=== PATIENT | female | born 1935 | race Caucasian/White ===

== ENCOUNTER → 2016-12-07 | Outpatient (CLI) | payer MEDICARE, OTHER ==
--- NOTE | 2016-12-08 06:09 | WWPN ---
DATE OF SERVICE: 12/07/2016 CHIEF COMPLAINT: A bulge from the vaginal opening x6 months. HPI: This is a 80-year-old G3, P3 with an LMP of 1980 who has noticed a slight bulge from the vaginal opening at various times. She states that it is not constantly out, but tends to come out in certain situations. She states it can protrude from the vaginal opening about 1 inch. She does have a history of a cystocele and uterine prolapse, which have been followed conservatively. She denies any significant urinary leakage, but does feel like she sometimes has to get to the bathroom right away. PAST MEDICAL HISTORY: Anxiety. REVIEW OF SYSTEMS: She denies respiratory, cardiac or GI problems. PHYSICAL EXAM: Blood pressure 116/72. Height 5 feet 1 inch. Weight 129 pounds. Temperature 97.6. Pulse 72. This is a well-developed, well-nourished white female who is alert and oriented x3 in no acute distress. ABDOMEN: Soft, nontender without palpable masses. PELVIC EXAM: External genitalia reveals moderate atrophy without lesions. At rest, a small mucosal prolapse is noted in the anterior part of the introitus protruding approximately 1 to 2 cm from the introitus. With speculum examination , the anterior part of the cervix seems to be part of the prolapsing tissue alone with a cystocele. The uterus and bladder seem to come to the introitus at rest and with Valsalva can protrude from the introitus approximately 1 to 2 cm. The mucosal tissue appears mildly atrophic, but there is no ulceration or excoriation of the mucosal tissue. There is no significant thickening of the mucosal tissue as well. Bimanual exam confirms uterine and bladder prolapse as described above. The uterus is small, nongravid size and nontender. There are no palpable adnexal masses or tenderness. Rectovaginal exam confirms a grade 2 rectocele, which was also noted on the vaginal exam. There are no rectal masses. IMPRESSION: A 80-year-old menopausal female with slightly worsening of her vaginal prolapse and this includes a grade 3 to 4 uterine prolapse and grade 3 to 4 cystocele. There is also a grade 2 rectocele. PLAN: 1. We have had a long discussion regarding the findings as well as various options including surgical correction, conservative management and pessary use. The patient would like to proceed with conservative management. 2. Negative Valsalva exercises were again discussed with the patient and I have recommended that she do this 5 times in a row when she does notice an increased bulge and prior to voiding. She feels strongly that she does not want surgery at this time. 3. We will also have a trial of using Poise Impressa bladder supports. She will use a trial fitting kit and use this as directed if she finds it helpful. 4. She will return in approximately 3 months for her annual exam and p.r.n. Total time spent with the patient 35 minutes. RACHAEL
== END | disposition home or self-care (01) ==
LOC: WWCWWP 10:39
PROVIDERS: ATTEND Obstetrics & Gynecology
DX: Z53.9 Procedure and treatment not carried out, unspecified reason (principal)

== ENCOUNTER → 2017-02-13 | Outpatient (CLI) | payer MEDICARE, OTHER ==
[2017-02-13 12:23] LABS: EKG EKG PERFORMED
[2017-02-13 13:09] LABS: Basophils # (A) 0.1 k/uL (0-0.2); Basophils % (A) 1 %; CH 31.6; CHCM 32.9; Eosinophils # (A) 0.2 k/uL (0-0.7); Eosinophils % (A) 3 %; HCT 41.9 % (34.0-46.0); HDW 2.27; HGB 13.3 gm/dL (11.4-16.0); Luc # (Auto) 0.13; Luc % (Auto) 2; Lymphocytes # (A) 2.1 k/uL (1.0-4.8); Lymphocytes % (A) 30 %; MCH 30.6 pg (25.0-35.0); MCHC 31.7 g/dL (31.0-37.0); MCV 96.6 fL (80.0-100.0); Mean Platelet Volume 7.5; Monocytes # (A) 0.4 k/uL (0-1.0); Monocytes % (A) 6 %; Neutrophils % (A) 58 %; RBC 4.33 m/uL (3.80-5.40); RDW 14.4 % (11.5-15.5); WBC 6.9 k/uL (3.8-10.6); WBC (Perox) 7.19
[2017-02-13 13:34] LABS: Anion Gap 7 mmol/L; Blood Urea Nitrogen 14 mg/dL (7-17); Carbon Dioxide 29 mmol/L (22-30); Chloride 103 mmol/L (98-107); Non-African American GFR(MDRD) >60 (>60 ml/min/1.73 sqM); Potassium 4.5 mmol/L (3.5-5.1); Sodium 139 mmol/L (137-145)
== END | disposition home or self-care (01) ==
LOC: LABPAT 12:11
PROVIDERS: ATTEND Obstetrics & Gynecology
DX: Z01.810 Encounter for preprocedural cardiovascular examination (principal); N81.4 Uterovaginal prolapse, unspecified
CPT/HCPCS: 80051; 82565; 84520; 85025; 87086; 93005

== ENCOUNTER 2017-02-21 05:48 | Day surgery (SDC) | payer MEDICARE, OTHER ==
[2017-02-13 18:20] VITALS: BMI 24.1
[~2017-02-21 05:48] MED LIST: DEXAMETHASONE SOD PHOSPHATE 10 MG/ML 1 ML VIAL IV ONE; HYDROmorphone 0.5 MG/0.5 ML SYRINGE IVP PRN; ONDANSETRON 4 MG/2 ML VIAL IVP ONE; ceFAZolin 2 GM in SODIUM CHLORIDE 0.9% 100 ML IVPB ONE
[2017-02-21] MEDS: LACTATED RINGERS 1,000 ML IV SCH ×3 (06:30→21:12)
[2017-02-21] MEDS ORDERED: LIDOCAINE 1% 20 ML VIAL (10MG/ML) FOR IV START INTRADERMA ONE (06:30)
[2017-02-21] MEDS ORDERED: MIDAZOLAM 2 MG/2 ML VIAL ONE (07:23)
[2017-02-21] MEDS ORDERED: fentaNYL (PF) 50 MCG/ML 2 ML AMP ONE (07:23)
[2017-02-21] MEDS ORDERED: PROPOFOL 10 MG/ML 20 ML VIAL IV ONE (07:23)
[2017-02-21] MEDS ORDERED: diphenhydrAMINE 50 MG/ML 1 ML VIAL ONE (07:23)
[2017-02-21] MEDS ORDERED: VASOPRESSIN 20 UNIT/ML 1 ML VIAL SQ ONE ×2 (07:49)
[2017-02-21] MEDS ORDERED: BACITRACIN 500 UNIT/GM OINT 28.4 GM TUBE TOPICAL ONE (08:32)
[2017-02-21] MEDS ORDERED: METOCLOPRAMIDE 5 MG/ML 2 ML VIAL IVP PRN (09:10)
[2017-02-21] MEDS ORDERED: SIMETHICONE 80 MG CHEWABLE PO PRN (09:10)
[2017-02-21] MEDS ORDERED: IBUPROFEN 600 MG TAB PO PRN (09:10)
[2017-02-21] MEDS ORDERED: Acetaminophen-Codeine 300-30mg TAB PO PRN (09:10)
[2017-02-21] MEDS ORDERED: diphenhydrAMINE 50 MG/ML 1 ML VIAL IVP PRN (09:10)
--- NOTE | 2017-02-21 09:10 | P.OP ---
Date of Procedure: 02/21/17 Preoperative Diagnosis: Uterine prolapse, symptomatic cystocele and rectocele Postoperative Diagnosis: Atrophic-appearing ovaries bilaterally Procedure(s) Performed: Vaginal hysterectomy, anterior and posterior colporrhaphy's Anesthesia: ROSALESA Surgeon: Ana Hurtado Bander Operator #1: Gena Corona Estimated Blood Loss (ml): 50 IV fluids (ml): 700 Urine output (ml): 300 Pathology: other (Cervix and uterus) Condition: stable Disposition: PACU Description of Procedure: Patient is brought to the operating room where spinal with Duramorph is given per the anesthesia staff. She's placed in the dorsal lithotomy position. The cervix vagina perineal bodies and lower abdomen are all prepped and draped in the usual sterile fashion. Antibiotics are given. The appropriate timeout was performed to assure proper patient and procedural identification. The weighted speculum was placed into the vagina. The bladder is drained for approximate 300 mL of clear yellow urine. The anterior lip of the cervix is grasped with a double-tooth tenaculum. The cervix was injected circumferentially with a dilute Pitressin solution. A [facility] ir[facility] blade scalpel is used to incise the mucosa circumferentially with a V like positioning in the back. A sponge was used to sweep the mucosa from the underlying fascial plane. The peritoneum is entered at 6:00 with Metzenbaum scissors, the large billed speculum was then placed into the peritoneal cavity. The right uterosacral cardinal ligament is clamped with a Gino clamp. Duarte scissors are used to cut the pedicle. 0 Vicryl is used in a Edilberto stitch to secure the pedicle, this is held with a hemostat laterally. The same procedure is carried out on the contralateral side. At all times a sponge is used to keep the bladder swept well from the operative field to avoid bladder and/or ureteral injury. Uterine vasculature is next identified and incised, it is clamped and tied and the suture cut. 2 additional pedicles are taken superior to this. The uterus is then "walked out posteriorly. The peritoneum is entered at 12:00. Gino clamps are used across the final pedicles and the specimen is removed. The pedicles are then suture tied with 0 Vicryl suture, flashed and retied for excellent hemostasis. A sponge stick is then used and bilateral ovaries are inspected and noted to be normal, they are left in situ per the patient's wishes. The speculum is then changed to the shallow billed speculum. The previously placed 2-0 Vicryl at 6:00 is brought around in a pursestring fashion to close the peritoneum. The previously held uterosacral cardinal ligament complex these are then brought across to incorporate the opposite complex and vaginal mucosa to close the vaginal cough. An additional [id number] is placed in the mucosa's inferior to this. Allis clamps are then used to grasp the anterior mucosa and a fanlike fashion. The anterior mucosa is once again injected with the same dilute Pitressin solution. Metzenbaum scissors are used to undermine the mucosa and develop the plane. The mucosa is cut in the midline to approximately 1/2 cm inferior to the urethra. Cheek catheter is then placed in the bladder is once again drained. The mucosa is then swept from the underlying fascial plane bilaterally. 2-0 Vicryl suture is used in an interrupted fashion to bring the fascial edges together thereby completely reducing the cystocele. Metzenbaum scissors are used to trim the redundant mucosa. A fresh 2-0 suture is used in a running fashion to close the vaginal mucosa. At this time the rectocele repair is started. Scalpel is used to remove a triangular portion of tissue at the perineal body. Posterior mucosa is injected with the same dilute Pitressin solution. Metzenbaum scissors are used in the midline to underlying the mucosa and it is opened to the apex of the defect. The mucosa is held in a fanlike fashion bilaterally with Allis clamps. A sponge is used to once again sweep the mucosa from the underlying fascial plane. 2-0 Vicryl sutures are used in an interrupted fashion to bring the fascia together in the midline thereby completely reducing the rectocele. Metzenbaum scissors are used to trim the mucosa. A fresh 2-0 suture is used in a running fashion to close the mucosa and the repair is finished in an episiotomy-like repair. Cheek is noted to be draining clear urine. Rectal exam reveals no suture material in the rectal vault. All sponge needle and enhancement counts are correct at the end of the procedure. Patient is brought back to recovery room in stable condition with stable vital signs including blood pressure 120/63, pulse 72, 100% O2 saturation. Complications: None.
[2017-02-21] MEDS: SENNOSIDES-DOCUSATE SODIUM 1 EACH TAB PO SCH (21:12)
--- NOTE | 2017-02-22 07:08 | P.PN ---
Progress Note - Text Postoperative day 1 status post , vaginal hysterectomy ,under GA anesthesia, and intrathecal morphine given for postoperative analgesia, patient doing well, there is no anesthesia related complications, further management as per her primary team
--- NOTE | 2017-02-22 08:50 | P.DS ---
Providers Date of admission: t Expected date of discharge: 02/22/17 Attending physician: Ana Hurtado Primary care physician: Ivan Orellana [facility] Course: This is a 81-year-old female 3 para 3 who presented with pelvic organ prolapse, uterine prolapse, cystocele and rectocele. Consultation was performed thoroughly, and patient elected to have surgical repair. Please see my dictated history and physical for details. Patient underwent vaginal hysterectomy, anterior and posterior colporrhaphy's under my care yesterday. She did very well intraoperatively. The ovaries appeared normal to inspection and therefore were left in situ per her wishes. Please see my dictated operative note for details. Vaginal packing and Cheek catheter were placed. Patient did well through the night. This morning there is only scant vaginal drainage. She has voided, and postvoid residual was measured at 37 mL's. Vital signs are stable and she is afebrile. Abdomen is soft, nontender, active bowel sounds. There is no CVA tenderness. Chest is clear in all singh. Pain is well controlled. Patient's diet and activity have been advanced. Patient will be discharged home later today after her shower and after she is tolerating regular food. I believe she is in very good condition for discharge home. She will use [id number] pain medications as needed, Aleve or Advil products. I've asked her to call me with any foul smelling or bloody vaginal drainage, with any fevers shakes or chills, with any pain not alleviated by over -the-counter products, or indeed with any issues or concerns. I have reminded her no intercourse, tampons or douching. No heavy lifting, no vacuuming, limited stair climbing for the next 2 weeks. She will follow-up with me in the office in 2 weeks. Patient Condition at Discharge: Good Plan - Discharge Summary New Discharge Prescriptions: No Action B Complex-Vit C-Vit E-Zinc [Z-Bec] 1 tab PO BID Sertraline [Zoloft] 50 mg PO DAILY Aspirin [Adult Low Dose Aspirin EC] 81 mg PO BID Calcium Carbonate/Vitamin D3 [Calcium 600-Vit D3 400 Caplet] 1 each PO BID Ascorbic Acid [Vitamin C] 1,000 mg PO DAILY Silver Sulfadiazine [SSD 1% Cream] 1 applic TOPICAL BID Discharge Medication List Ascorbic Acid [Vitamin C] 1,000 mg PO DAILY 02/13/17 [History] Aspirin [Adult Low Dose Aspirin EC] 81 mg PO BID 02/13/17 [History] B Complex-Vit C-Vit E-Zinc [Z-Bec] 1 tab PO BID 02/13/17 [History] Calcium Carbonate/Vitamin D3 [Calcium 600-Vit D3 400 Caplet] 1 each PO BID 02/13 [History] Sertraline [Zoloft] 50 mg PO DAILY 02/13/17 [History] Silver Sulfadiazine [SSD 1% Cream] 1 applic TOPICAL BID 02/13/17 [History] Follow up Appointment(s)/Referral(s): Ana Hurtado MD [STAFF PHYSICIAN] - 2 Weeks
[2017-02-22] MEDS ORDERED: SERTRALINE 50 MG TAB PO SCH (09:00)
[2017-02-22] MEDS: SENNOSIDES-DOCUSATE SODIUM 1 EACH TAB PO SCH (09:01)
[2017-02-22 11:16] VITALS: BP 130/69; PULSE 66; RESP 20; TEMP 98.1
== END 2017-02-22 10:43 | disposition home or self-care (01) ==
LOC: OR 05:48 → 6PED 08:53 → OR 02-22 10:43
PROVIDERS: ATTEND Obstetrics & Gynecology
DX: N80.0 Endometriosis of uterus (principal); N81.4 Uterovaginal prolapse, unspecified; Z87.891 Personal history of nicotine dependence; Z79.899 Other long term (current) drug therapy; Z79.82 Long term (current) use of aspirin; Z88.1 Allergy status to other antibiotic agents
CPT/HCPCS: 58260; 57250; 88307; C1762; J2250; J1200; J1100; J0690; J2405; J3010; J2704; 86850; 86900; 86901